=== PATIENT | male | born 1965 | race African-American/Black ===

== ENCOUNTER 2020-09-04 18:43 | Emergency (ER) | payer MEDICAID ==
[~2020-09-04] VITALS: Ht 190.5 cm; Wt 100.0 kg
[2020-09-04] MEDS ORDERED: KETOROLAC 60MG/2ML VIAL IM ONE (19:00)
[2020-09-04] MEDS ORDERED: IBUP-2030 MT (19:06)
[2020-09-04] MEDS ORDERED: TRAM50TA3 MT (19:06)
[2020-09-04] MEDS ORDERED: AMOX-494 MT (19:06)
[2020-09-04 19:30] VITALS: BP 135/91
== END 2020-09-04 20:05 | disposition home or self-care (01) ==
LOC: ER 18:43
DX: K04.7 Periapical abscess without sinus (principal); R68.84 Jaw pain; I10 Essential (primary) hypertension
CPT/HCPCS: 96372; 99283; J1885

== ENCOUNTER 2024-02-07 05:35 | Emergency (ER) | payer SELFPAY ==
[~2024-02-07] VITALS: Ht 193 cm; Wt 100.0 kg
[~2024-02-07 05:35] MED LIST: AMOX-494 MT; IBUP-2030 MT; TRAM50TA3 MT
[2024-02-07 05:37] VITALS: O2SAT 99
[2024-02-07 05:41] VITALS: BP 132/79; PULSE 89; RESP 16; TEMP 98; O2SAT 97
[2024-02-07] MEDS ORDERED: IBUP-2029 MT (06:21)
== END 2024-02-07 09:00 | disposition home or self-care (01) ==
LOC: ER 05:35
DX: M70.32 Other bursitis of elbow, left elbow (principal); Z79.899 Other long term (current) drug therapy; Y93.89 Activity, other specified
CPT/HCPCS: 99282

== ENCOUNTER 2025-03-07 07:13 | Inpatient (IN) | payer MEDICAID ==
[~2025-03-07] VITALS: Ht 190.5 cm; Wt 98.9 kg
[~2025-03-07 07:13] MED LIST changes: +IBUP-1455 MT
[2025-03-07 07:22] VITALS: O2SAT 99
[2025-03-07] MEDS ORDERED: CLINDAMYCIN 600 MG in DEXTROSE 5% WATER 50 ML IV ONE (07:45)
[2025-03-07 08:04] LABS: BASOPHILS % 0.9 % (0.0-2.0); EOSINOPHILS % 1.4 % (0.0-5.0); HEMATOCRIT. 41.6 % (42.0-52.0); HEMOGLOBIN. 14.1 g/dL (14.0-18.0); LYMPHOCYTES % 19.5 % (20.0-50.0); MEAN PLATELET VOLUME 8.4 fl (7.4-10.4); MONOCYTES % 8.5 % (2.0-8.0); NEUTROPHILS % 69.7 % (40.0-76.0); PLATELET 269 x1000/uL (130-400); RED BLOOD CELL COUNT 4.41 mill/uL (4.7-6.1); RED CELL DISTRIBUTION WIDTH 15.2 % (11.6-14.6)
[2025-03-07 08:20] LABS: CREATININE 1.0 mg/dL (0.6-1.3)
[2025-03-07 08:21] LABS: UREA NITROGEN BLOOD 10 mg/dL (9-23)
[2025-03-07] MEDS: CLINDAMYCIN 600MG PREMIX 50 ML IV NR (08:33)
[2025-03-07 12:00] VITALS: BP 122/86; PULSE 71; RESP 17; TEMP 36.8; O2SAT 98
[2025-03-07 12:01] VITALS: BP 122/86; PULSE 71; RESP 17; TEMP 36.8628
[2025-03-07] MEDS ORDERED: ACETAMINOPHEN 325MG TABLET PO PRN (13:30)
[2025-03-07] MEDS ORDERED: CLINDAMYCIN 300 MG in DEXTROSE 5% WATER 50 ML IV SCH (13:30)
[2025-03-07] MEDS ORDERED: KETOROLAC 30MG/ML VIAL IV PRN (13:30)
[2025-03-07] MEDS ORDERED: BISACODYL 5MG TABLET PO PRN (13:30)
[2025-03-07] MEDS ORDERED: MAGNESIUM/ALUMINUM HYDROXIDE/SIMETHICONE 30ML UDC PO PRN (13:30)
[2025-03-07 16:00] VITALS: BP 109/72; PULSE 70; RESP 18; TEMP 36.7; O2SAT 99
[2025-03-07] MEDS: ENOXAPARIN 40MG/0.4ML SYR SUBCUT SCH (16:27)
[2025-03-07] MEDS: CLINDAMYCIN 900MG PREMIX 50 ML IV SCH (17:39)
[2025-03-07 20:00] VITALS: BP 103/63; PULSE 70; RESP 19; TEMP 36.7; O2SAT 96
[2025-03-07] MEDS ORDERED: VANCOMYCIN 1G PREMIX 200 ML IV SCH (20:00)
[2025-03-07] MEDS: VANCOMYCIN 2GM PMX (XELLIA) 400 ML IV SCH (21:25)
[2025-03-07] MEDS: FAMOTIDINE 20MG TABLET PO SCH (21:27)
[2025-03-08] VITALS: BP 92/62; PULSE 62; RESP 18; TEMP 36.6; O2SAT 97
[2025-03-08 04:00] VITALS: BP 97/54; PULSE 59; RESP 18; TEMP 36.2; O2SAT 96
[2025-03-08 08:00] VITALS: BP 101/63; PULSE 61; RESP 18; TEMP 36.6; O2SAT 97
[2025-03-08] MEDS: VANCOMYCIN 1.25GM/250ML 250 ML IV SCH (08:11)
[2025-03-08 12:00] VITALS: BP 123/67; PULSE 77; RESP 20; TEMP 36.3; O2SAT 97
== END 2025-03-08 16:00 | disposition left against medical advice (07) | DRG 383 ==
LOC: ER 07:15 → 8EST 08:35 → ENRESERV 10:51
PROVIDERS: ADMIT Internal Medicine; ATTEND Internal Medicine
DX: L03.114 Cellulitis of left upper limb (principal); L53.9 Erythematous condition, unspecified; Z53.29 Procedure and treatment not carried out because of patient's decision for other reasons; Z79.899 Other long term (current) drug therapy
CPT/HCPCS: 36415; 80048; 85025; 87077; 96365; 99285; A4606; J1650; J3373; J3490; J7060